=== PATIENT | female | born 1970 | race Caucasian/White ===

== ENCOUNTER → 2016-11-11 | Outpatient (CLI) | payer BC ==
[~2016-11-11] MED LIST: HYZAAR 50-12.51 EACH PO; LEVO-T125 MCG PO
[2016-11-11 13:05] VITALS: BP 131/82
--- NOTE | 2016-11-11 13:20 | NUR ---
Pt returns safely at this time in stable condition from outting for lunch and tour of [employer], will assist patient in getting settled back into his room, reports the visit went "well", patient is smiling in affect
[2016-11-11 15:12] VITALS: BP 127/72
== END ==
LOC: AMSURD 12:45
DX: E86.0 Dehydration (principal)
CPT/HCPCS: J2405; J7030

== ENCOUNTER → 2017-02-07 | Outpatient (CLI) | payer BC ==
[2016-11-11 15:12] VITALS: BP 127/72
== END ==
LOC: LAB 08:15
DX: N30.01 Acute cystitis with hematuria (principal); B96.20 Unspecified Escherichia coli [E. coli] as the cause of diseases classified elsewhere

== ENCOUNTER 2017-09-12 09:32 | Emergency (ER) | payer BC ==
[~2017-09-12] VITALS: Ht 170.2 cm; Wt 122.7 kg
[2017-09-12 10:00] LABS: EOS # 0.1 (0.04-0.40); EOS % 1.6 % (1.0-5.0); HEMATOCRIT 41.3 % (37.0-47.0); HEMOGLOBIN 13.4 g/dL (12.5-16.0); LYMPH# 2.1 (1.50-4.00); MEAN CELL VOLUME 84 fl (78-100); MEAN CORPUSCULAR HEMOGLOBIN 27 pg (27-31); MEAN CORPUSCULAR HGB CONC 32 g/dL (33-37); MEAN PLATELET VOLUME 9.9 fl (7.4-10.4); MONO # 0.6 (0.20-0.80); NEU # 3.5 (1.40-6.50); PLATELET COUNT 354 K/mm3 (130-400); RED CELL DISTRIBUTION WIDTH 14.9 % (11.5-14.5); WHITE BLOOD COUNT 6.3 K/mm3 (4.8-10.8)
[2017-09-12] MEDS ORDERED: SYNTHROID RP0.1 MG PO (10:18)
[2017-09-12] MEDS ORDERED: GOOD NEIGHBOR200 M1 PO (10:19)
[2017-09-12 10:26] LABS: ALBUMIN 3.8 g/dL (3.5-5.0); BUN/CREATININE RATIO 13.9 (6.0-26.0); CALCIUM 9.1 mg/dL (8.4-10.2); POTASSIUM 3.8 mmol/L (3.6-5.0); TOTAL BILIRUBIN 0.6 mg/dL (0.2-1.3); TOTAL PROTEIN 7.6 g/dL (6.3-8.2)
[2017-09-12 10:32] LABS: CKMB ISOENZYME 1.6 ng/mL (0.6-3.5)
[2017-09-12 10:33] LABS: TROPONIN-I < 0.03 ng/mL (0.00-0.06)
[2017-09-12 10:36] LABS: D-DIMER 0.35 mg/L FEU (0.15-0.50)
[2017-09-12] MEDS ORDERED: NORCO 325 MG-51 TA1 PO (12:09)
[2017-09-12] MEDS ORDERED: MELOXICAM15 MG PO (12:09)
[2017-09-12] MEDS ORDERED: CYCLOBENZAPRIN7.5 MG PO (12:09)
[2017-09-12 12:23] VITALS: BP 114/57
== END 2017-09-12 12:17 | disposition home or self-care (01) ==
LOC: ED 09:32
PROVIDERS: Nurse Practitioner Primary Care
DX: I20.9 Angina pectoris, unspecified (principal); M54.31 Sciatica, right side; I10 Essential (primary) hypertension; Z88.2 Allergy status to sulfonamides; Z82.49 Family history of ischemic heart disease and other diseases of the circulatory system; Z88.8 Allergy status to other drugs, medicaments and biological substances
CPT/HCPCS: J1885; J2270; J7030

== ENCOUNTER → 2018-03-28 | Outpatient (CLI) | payer BC ==
[~2018-03-28] MED LIST changes: +CYCLOBENZAPRIN7.5 MG PO; +GOOD NEIGHBOR200 M1 PO; +MELOXICAM15 MG PO; +NORCO 325 MG-51 TA1 PO; +SYNTHROID RP0.1 MG PO
== END ==
LOC: MAMMO 11:20
DX: Z12.31 Encounter for screening mammogram for malignant neoplasm of breast (principal)

== ENCOUNTER → 2019-10-03 | Outpatient (CLI) | payer BC | LOC: RAD 08:55 | DX: M77.9 Enthesopathy, unspecified (principal); M89.311 Hypertrophy of bone, right shoulder ==